=== PATIENT | male | born 1985 | race Caucasian/White ===

== ENCOUNTER 2018-03-04 08:11 | Day surgery (SDC) | payer BC ==
[~2018-03-04] VITALS: Ht 188 cm; Wt 195.0 kg
[~2018-03-04 08:11] MED LIST: DAYPRO600 MG PO; LAMICTAL200 MG PO; PAXIL40 MG PO; PRILOSEC20 MG PO; ZESTORETIC 20-1 EAC1 PO
[2018-03-04 08:40] VITALS: BP 169/94
[2018-03-04 11:16] VITALS: BP 146/78
[2018-03-04 12:22] VITALS: BP 171/90
== END 2018-03-04 12:24 | disposition home or self-care (01) ==
LOC: SDC 08:11
PROC: 0VTQ0ZZ Resection of Bilateral Vas Deferens, Open Approach (ICD-10-PCS; principal; 2018-03-04)
DX: Z30.2 Encounter for sterilization (principal); F41.9 Anxiety disorder, unspecified; I10 Essential (primary) hypertension; E66.01 Morbid (severe) obesity due to excess calories; Z68.45 Body mass index [BMI] 70 or greater, adult
CPT/HCPCS: 88302; J0131; J0690; J1885; J2250; J2405; J3010